=== PATIENT | male | born 1995 | race Two or more races ===

== ENCOUNTER 2018-01-10 19:43 | Emergency (ER) | payer SELFPAY ==
[2018-01-10] MEDS: LIDOCAINE 1%/EPI 1:100,000 20 ML VIAL. INJ (21:55)
[2018-01-10] MEDS: NEOMY/BACITR/POLYMYXIN OINT PACKET. TP (21:55)
[2018-01-10] MEDS: DIPHTH,PERTUSS(ACELL),TET TOX 0.5 ML DISP.SYRIN. VAX IM (21:56)
== END 2018-01-10 23:15 | disposition home or self-care (01) ==
LOC: ER 19:43
DX: S51.812A Laceration without foreign body of left forearm, initial encounter (principal); W26.0XXA Contact with knife, initial encounter; Y93.89 Activity, other specified; Y99.8 Other external cause status; Y92.89 Other specified places as the place of occurrence of the external cause
CPT/HCPCS: 90471; 90715; 96372; 99284-25; J3490